=== PATIENT | female | born 1975 | race African-American/Black ===

== ENCOUNTER 2020-03-24 02:27 | Emergency (ER) | payer OTHER ==
[~2020-03-24] VITALS: Ht 152.4 cm; Wt 102.1 kg
[2020-03-24 03:05] LABS: ABSOLUTE NEUTROPHILS 2.7 thou/uL (1.4-8.2); BASOPHILS 1.1 % (0.0-2.0); EOSINOPHILS 1.6 % (0.0-3.0); HEMATOCRIT 35.9 % (37.0-47.0); HEMOGLOBIN 12.2 gm/dL (12.0-15.0); MCH 30.3 pg (26.0-34.0); MCHC 33.9 g/dL (28.0-37.0); MCV 89.4 fL (80.0-100.0); MONOCYTES 7.4 % (1.0-8.0); PLATELET COUNT 315 thou/uL (150-400); POLYS 36.9 % (36.0-66.0); RBC 4.02 mil/uL (4.20-5.00); WBC 7.4 thou/uL (4.0-11.0)
[2020-03-24 03:09] LABS: CALCIUM 8.9 mg/dL (8.5-10.1); CREATININE 1.1 mg/dL (0.6-1.0); MAGNESIUM 2.3 mg/dL (1.8-2.4); POTASSIUM 4.2 mmol/L (3.5-5.1)
[2020-03-24] MEDS ORDERED: KEPPRA750 MG PO (03:29)
[2020-03-24] MEDS ORDERED: COMBIVENT RESPIM4 GM BUCCAL (03:30)
[2020-03-24 04:11] LABS: URINE BILIRUBIN NEGATIVE (Negative); URINE BLOOD NEGATIVE (Negative); URINE CLARITY CLEAR; URINE COLOR YELLOW; URINE GLUCOSE-RANDOM* NEGATIVE (Negative); URINE KETONES NEGATIVE (Negative); URINE LEUKOCYTES-REFLEX NEGATIVE (Negative); URINE NITRITE-REFLEX NEGATIVE (Negative); URINE PROTEIN (DIPSTICK) NEGATIVE (Negative); URINE UROBILINOGEN 0.2 E.U./dl (0.2-1.0)
[2020-03-24 10:54] VITALS: BP 103/72
== END 2020-03-24 12:12 | disposition home or self-care (01) ==
LOC: ER 02:27
PROVIDERS: Emergency Medicine
DX: G40.901 Epilepsy, unspecified, not intractable, with status epilepticus (principal); J45.909 Unspecified asthma, uncomplicated

== ENCOUNTER 2021-02-26 02:42 | Emergency (ER) | payer OTHER ==
[~2021-02-26] VITALS: Ht 152.4 cm; Wt 89.8 kg
[~2021-02-26 02:42] MED LIST: COMBIVENT RESPIM4 GM BUCCAL; KEPPRA750 MG PO
[2021-02-26] MEDS ORDERED: [UNRECOGNIZED DRUG - REMARK] (02:50)
[2021-02-26 03:28] LABS: ABSOLUTE NEUTROPHILS 2.8 thou/uL (1.4-8.2); BASOPHILS 0.9 % (0.0-2.0); EOSINOPHILS 1.7 % (0.0-3.0); HEMATOCRIT 40.6 % (37.0-47.0); HEMOGLOBIN 13.5 gm/dL (12.0-15.0); MCH 30.2 pg (26.0-34.0); MCHC 33.2 g/dL (28.0-37.0); MCV 90.9 fL (80.0-100.0); MONOCYTES 7.3 % (1.0-8.0); PLATELET COUNT 120 thou/uL (150-400); POLYS 38.1 % (36.0-66.0); RBC 4.47 mil/uL (4.20-5.00); RDW 14.8 % (10.5-14.5); WBC 7.3 thou/uL (4.0-11.0)
[2021-02-26 03:30] LABS: URINE BILIRUBIN NEGATIVE (Negative); URINE BLOOD NEGATIVE (Negative); URINE CLARITY CLEAR; URINE COLOR YELLOW; URINE GLUCOSE-RANDOM* TRACE (Negative); URINE KETONES NEGATIVE (Negative); URINE LEUKOCYTES-REFLEX NEGATIVE (Negative); URINE NITRITE-REFLEX NEGATIVE (Negative); URINE PROTEIN (DIPSTICK) NEGATIVE (Negative)
[2021-02-26 03:38] LABS: ANION GAP 10 mmol/L (7-16); BUN 11 mg/dL (7-18); CALCIUM 8.1 mg/dL (8.5-10.1); CHLORIDE 104 mmol/L (98-107); CO2 28 mmol/L (21-32); CREATININE 1.2 mg/dL (0.6-1.0); GLUCOSE 140 mg/dL (74-106); POTASSIUM 3.3 mmol/L (3.5-5.1); SODIUM 142 mmol/L (136-145)
[2021-02-26 03:41] LABS: AMP/METHAMP Negative (Negative); BARBITURATES Negative (Negative); BENZODIAZEPINES Negative (Negative); COCAINE Negative (Negative); METHADONE Negative (Negative); OPIATES Negative (Negative); PCP Negative (Negative)
[2021-02-26 03:45] LABS: ALBUMIN 2.9 g/dL (3.4-5.0); DIRECT BILIRUBIN < 0.1 mg/dL (<0.1-0.2); SGOT 9 U/L (15-37); SGPT 9 U/L (14-59); TOTAL BILIRUBIN < 0.1 mg/dL (0.2-1.0); TOTAL PROTEIN 7.6 g/dL (6.4-8.2)
[2021-02-26 06:12] VITALS: BP 132/66
== END 2021-02-26 06:18 | disposition home or self-care (01) ==
LOC: ER 02:42
PROVIDERS: Emergency Medicine
DX: G40.802 Other epilepsy, not intractable, without status epilepticus (principal); R10.9 Unspecified abdominal pain; J45.909 Unspecified asthma, uncomplicated

== ENCOUNTER 2021-04-03 02:14 | Emergency (ER) | payer OTHER ==
[~2021-04-03] VITALS: Ht 162.6 cm; Wt 88.5 kg
--- NOTE | ~2021-04-03 | EMS ---
[address] [address] EMS Patient Care Report Name: DARRYL MARTINEZ Room #: DEP Amelia#: [id number] Admission: 04/03/21 Attend Phys: Discharge: 04/03/21 Date of : 75 Report #: [id number] THIS REPORT FOR: //name// Report Transmitted: 04/04/2021 09:43 EMS Care Summary [place], [place]/[facility] Incident [id number] @ 04/03/2021 01:46 Incident Location [id number] [place] [address] Patient DARRYL MARTINEZ Female, 45 Years 1975 Patient Address [id number] [place] [address] Patient History Asthma,Seizures, Patient Allergies No known allergies, Patient Medications Keppra, Albuterol, Chief Complaint Bed Bugs Disposition Transported No Lights/[place] Dispatch Reason Sick Person Transported To [facility] Narrative Arrived on scene to be greeted by our patient standing at the front door. Patient stated that she had started to develop small insect bite mabry all over her arms and legs throughout the course of the day. Patient stated that the neighbors in her apartment had bed bugs and had spread it to the other [address] [address] EMS Patient Care Report Name: DARRYL MARTINEZ Room #: DEP ER Amelia#: [id number] Admission: 04/03/21 Attend Phys: Discharge: 04/03/21 Date of : 75 Report #: [id number] [address] in her building before she had come to her relatives house. Patient reported that she had bed bugs approximately 1 month prior with similar skin changes. Patient reported the uticaria like mabry on her extremities itched. Patient had small uticaria like mabry on all four of her extremities. Patient was ambulatory upon our arrival and walked to the ambulance. Vital signs obtained and patient transported and transferred to receiving facility without change in patient condition. Initial Vitals @01:58P: 90,R: 16,BP: 105/47,Pain: 0/10,GCS: 3,CO: 6,SpO2: 96,Revised Trauma: 8, @02:00P: 92,R: 16,BP: 123/87,Pain: 0/10,GCS: 15,CO: 6,SpO2: 96,Revised Trauma: 12, Assessments @01:53MENTAL:Place Oriented,Person Oriented,Event Oriented,Time Oriented,SKIN:HEENT:Head/Face: No Abnormalities,Neck/Airway: No Abnormalities,LUNG SOUNDS:General: No Abnormalities,Left Upper: No Abnormalities,Right Upper: No Abnormalities,Left Lower: No Abnormalities,Right Lower: No Abnormalities,ABDOMEN:General: No Abnormalities,Left Upper: No Abnormalities,Right Upper: No Abnormalities,Left Lower: No Abnormalities,Right Lower: No Abnormalities,PELVIS//GI:No Abnormalities,EXTREMITIES:Right Leg: Other,Left Arm: Other,Left Leg: Other,Right Arm: Other,PULSE:NEURO:No Abnormalities, Impression Skin infection Procedures @01:53ALS AssessmentResponse: UnchangedSucceeded Timeline 01:43,Call Received 01:43,Dispatch Notified 01:46,Dispatched 01:47,En Route 01:52,On Scene 01:53,At Patient 01:53,ALS Assessment,Response: UnchangedSucceeded, 01:57,Depart Scene 01:58,BP: 105/47 M,PULSE: 90,RR: 16 R,SPO2: 96 Ox,ETCO2: ,BG: ,PAIN: 0,GCS: 3, 02:00,BP: 123/87 M,PULSE: 92,RR: 16 R,SPO2: 96 Ox,ETCO2: ,BG: ,PAIN: 0,GCS: 15, 02:11,At Destination 02:17,Call Closed Disclaimer v1.1 Copyright 2020 [facility] [employer] [facility] [address] [address] EMS Patient Care Report Name: DARRYL MARTINEZ [id number] Admission: 04/03/21 Attend Phys: Discharge: 04/03/21 Date of : 75 Report #: [id number] This EMS Care Summary contains data elements from the applicable legal record (which may be displayed differently). It is designed to provide pertinent information for the following purposes: continuity of care, clinical quality, and state data reporting. The complete legal record is available to ED staff and administrators of the receiving hospital in [facility]'s Patient Tracker. All data is provided "as is."
[~2021-04-03 02:14] MED LIST changes: +[UNRECOGNIZED DRUG - REMARK]
[2021-04-03 02:22] VITALS: BP 150/88
[2021-04-03] MEDS ORDERED: BENADRYL25 MG PO (02:22)
== END 2021-04-03 02:46 | disposition home or self-care (01) ==
LOC: ER 02:14
DX: S80.862A Insect bite (nonvenomous), left lower leg, initial encounter (principal); S80.861A Insect bite (nonvenomous), right lower leg, initial encounter; S50.861A Insect bite (nonvenomous) of right forearm, initial encounter; J45.909 Unspecified asthma, uncomplicated; Z79.899 Other long term (current) drug therapy; W57.XXXA Bitten or stung by nonvenomous insect and other nonvenomous arthropods, initial encounter; Y93.89 Activity, other specified; Y92.89 Other specified places as the place of occurrence of the external cause; Y99.8 Other external cause status